=== PATIENT | male | born 1955 | race Caucasian/White ===

== ENCOUNTER 2016-09-24 09:08 | Emergency (ER) | payer OTHER ==
[~2016-09-24] VITALS: Ht 177.8 cm; Wt 89.3 kg
[~2016-09-24 09:08] MED LIST: ATOR40TA49 PO; CLOP75 PO; DUONI NEB; ECOT81TA2 PO; GUAI600 PO; LEVA500T PO; LORA10 PO; METO25 PO; NEBUKIT4; PRED10 PO
[2016-09-24 09:15] VITALS: BP 152/89; PULSE 70; RESP 16; TEMP 98.7; O2SAT 95
[2016-09-24] MEDS ORDERED: CLOP75TA PO (10:16)
[2016-09-24] MEDS ORDERED: oxyCODONE/ACETAMINOPHEN 10 MG/325 MG TAB PO ONE (10:30)
--- NOTE | 2016-09-24 11:03 | RADHPO ---
EXAM DATE/TIME: 09/24/2016 10:39 [place] COMPARISON: No previous studies available for comparison. INDICATIONS : Left mandible pain. Bullitt crack noice while eating. History of left mandible surgery. RADIATION DOSE: 30.01 CTDIvol (mGy) MEDICAL HISTORY : Cardiovascular disease. Hypertension. SURGICAL HISTORY : Coronary artery stent. Left mandible surgery. ENCOUNTER: Initial ACUITY: 2 days PAIN SCORE: 10/10 LOCATION: Left facial TECHNIQUE: Volumetric scanning of the facial bones was performed. Using automated exposure control and adjustme nt of the mA and/or kV according to patient size, radiation dose was kept as low as reasonably achiev able to obtain optimal diagnostic quality images. FINDINGS: ORBITS: The orbital and infraorbital osseous structures are intact. The retroconal structures have a normal configuration. No radiopaque foreign bodies are seen. NASAL BONE: The nasal bone and maxillary spine are intact. Rashmi bullosa on the right. ZYGOMATIC ARCHES: Symmetric without evidence of fracture. SINUSES: The ethmoid and frontal sinuses are intact. No air-fluid levels seen. Mucoperiosteal thickening of t he maxillary sinuses. NASAL CAVITY: The nasal septum is intact and midline. The lacrimal ducts are intact. SOFT TISSUES: No radiopaque foreign bodies seen. No soft-tissue swelling is seen. INTRACRANIAL: No intracranial air seen. CRIBIFORM PLATE: Grossly intact. OTHER: Cerclage wires are seen along the angle of left mandible. There is lucency surrounding the back molar of the left mandible on the left. CONCLUSION: 1. Cerclage wires along the left mandible. No acute fracture. 2. Periapical lucency along the back molar of the left mandible. Nicholas Ny MD on September 24, 2016 at 10:58 Board Certified Radiologist. This report was verified electronically.
--- NOTE | 2016-09-24 11:11 | PD ---
HPI Chief Complaint: Pain: Acute or Chronic Time Seen by Provider: 10:08 Travel History International Travel<30 days: No Contact w/Intl Traveler<30days: No Traveled to known affect area: No History of Present Illness HPI 60yo M with PMH of CAD s/p stent and PSH left jaw surgery in the presents to the ED with c/o left jaw pain after eating hard nuts 2 days ago. States he heard a crack and then felt pain. No pain with jaw opening but pain with jaw closing. No loose or crack teeth. Denies any fever, chest pain, sob, n/v, abdominal pain, focal weakness or numbness. Pt took advil which helps for a few hours but returns. PFSH Past Medical History Hx Anticoagulant Therapy: Yes (PLAVIX) Cardiovascular Problems: Yes (STENT AND HTN) Coronary Artery Disease: Yes Hypertension: Yes Past Surgical History Coronary Stent: Yes Social History Alcohol Use: Yes (OCCASIONAL) Tobacco Use: Yes (1/2 PPD) Substance Use: No Allergies-Medications (Allergen,Severity, Reaction): Coded Allergies: No Known Allergies (Unverified , 09/24/16) Reported Meds & Prescriptions Reported Meds & Active Scripts Active Reported Clopidogrel (Clopidogrel Bisulfate) 75 Mg Tab 75 Mg PO DAILY Review of Systems Except as stated in HPI: all other systems reviewed are Neg Physical Exam Narrative GENERAL: 60yo M in mild distress. SKIN: Focused skin assessment warm/dry. HEAD: Atraumatic. Normocephalic. EYES: Pupils equal and round. No scleral icterus. No injection or drainage. ENT: +TTP left angle of mandible. No erythema or edema. No jaw deviation with jaw opening. Mouth. No ttp left upper or lower molars. No periapical abscess. Throat clear. NECK: Trachea midline. No JVD. CARDIOVASCULAR: Regular rate and rhythm. No murmur appreciated. RESPIRATORY: No accessory muscle use. Clear to auscultation. Breath sounds equal bilaterally. GASTROINTESTINAL: Abdomen soft, non-tender, nondistended. MUSCULOSKELETAL: No obvious deformities. No clubbing. No cyanosis. No edema. NEUROLOGICAL: Awake and alert. No obvious cranial nerve deficits. Motor grossly within normal limits. Normal speech. PSYCHIATRIC: Appropriate mood and affect; insight and judgment normal. Data Data Last Documented VS Vital Signs Date Time Temp Pulse Resp B/P Pulse Ox O2 Delivery O2 Flow Rate FiO2 09/24/16 11:43 88 18 108/105 99 Room Air 09/24/16 09:[address] Facial Bones W/O Iv Cont (09/24/16 ) Oxycodone-Acetamin 10-325 Mg (Percocet 1 (09/24/16 10:30) MDM Medical Decision Making Medical Screen Exam Complete: Yes Emergency Medical Condition: Yes Interpretation(s) Last Impressions Maxillofacial CT 09/24/16 0000 Signed Impressions: Service Date/Time: Saturday, September 24, 2016 10:39 - CONCLUSION: 1. Cerclage wires along the left mandible. No acute fracture. 2. Periapical lucency along the back molar of the left mandible. Nicholas Ny MD Differential Diagnosis Fracture vs. hardware movement vs. musculoskeletal pain Narrative Course 60yo M with left jaw pain after eating nuts. Pt had prior surgery in his left mandible so CT facial completed and showed cerclage wires along the left mandible. No acute fracture. Periapical lucency along the back molar of the left mandible. Pt given percocet but states that he is still in pain. States that advil actually helped more. Pt is in a hurried and does not want any more pain medication here. Pt is to follow up with oral maxillofacial as outpatient. Diagnosis Primary Impression: Pain in lower jaw Patient Instructions: General Instructions Departure Forms: Tests/Procedures Additional Instructions: There is no acute fracture but there is a lucency along back molar of left mandible so please follow up with your dentist or oral maxillofacial surgeon as an outpatient this week. Return to the ED if symptoms worsen. Med/Other Pt SpecificInfo: Prescription(s) given Scripts Ibuprofen 400 Mg Adj607 Mg PO Q6H PRN (PAIN SCALE 1 TO 4) #20 TAB Ref 0 Prov:Maria Eugenia Duran DO 09/24/16 Disposition: 01 DISCHARGE HOME Condition: Stable Maria Eugenia Duran September 24, 2016 11:11
[2016-09-24 11:43] VITALS: BP 108/105; PULSE 88; RESP 18; O2SAT 99
[2016-09-24] MEDS ORDERED: IBUP400T20 PO (11:56)
--- NOTE | 2016-09-25 15:46 | EKG ---
Date Performed: 09/24/2016 Time Performed: 09:18:32 PTAGE: 60 years EKG: Sinus rhythm Normal ECG PREVIOUS TRACING : 03/31/2015 04.05 Compared to previous tracing, sinus rate is slower. DOCTOR: Deepak Garcia Interpretating Date/Time 09/25/2016 15:45:41
== END 2016-09-24 12:33 | disposition home or self-care (01) ==
LOC: PHED 09:08
DX: R68.84 Jaw pain (principal); I10 Essential (primary) hypertension; F17.200 Nicotine dependence, unspecified, uncomplicated; Z79.01 Long term (current) use of anticoagulants; Z98.890 Other specified postprocedural states; Z86.79 Personal history of other diseases of the circulatory system
CPT/HCPCS: 70486; 93005